=== PATIENT | female | born 1975 | race Caucasian/White ===

== ENCOUNTER → 2016-12-18 | Day surgery (SDC) | payer MEDICARE, MEDICAID ==
[~2016-12-18] VITALS: Ht 154.9 cm; Wt 90.7 kg
[~2016-12-18] MED LIST: ACETAMINOPHEN 325MG TABLET PO PRN; ALBU90AE IH; AMLO10TA4 PO; ATOR20TA PO; BENZ2TAB7 PO; BUSP10TA3 PO; CHOL500010 PO; CYAN10009 PO; DULA1.5P SQ; FENTANYL CITRATE/PF 50MCG/ML 2ML VIAL ONE; FOLI-43 PO; GABA-290 PO; HEPARIN SODIUM 1,000 UNIT/1ML VIAL IV ONE; HYDROMORPHONE HCL/PF 2MG/ML (OR) ONE; IOHEXOL-300 100 ML BOTTLE ONE; LIDOCAINE HCL 1% 20ML VIAL (Pyxis) INJ ONE; LISI40TA4 PO; MIDAZOLAM HCL 2 MG/2 ML VIAL ONE; NICARDIPINE 100MCG/ML 10ML VIAL (CATH LAB) IV ONE; NITROGLYCERIN 50MCG/ML 10ML VIAL (CATH LAB) IV ONE; QUET400T PO; RISP3TAB13 PO; TRIA1TAB92 PO
== END | disposition home or self-care (01) ==
LOC: CCL 10:44
PROVIDERS: ATTEND Specialist
DX: I25.110 Atherosclerotic heart disease of native coronary artery with unstable angina pectoris (principal); I11.9 Hypertensive heart disease without heart failure; E78.5 Hyperlipidemia, unspecified; E03.9 Hypothyroidism, unspecified; Z87.891 Personal history of nicotine dependence; Z86.73 Personal history of transient ischemic attack (TIA), and cerebral infarction without residual deficits; E11.9 Type 2 diabetes mellitus without complications
CPT/HCPCS: 82962; 93458; 99152; 99153; C1760; C1769; C1887; C1893; J1170; J1644; J2250; J3010; J3490; Q9967